=== PATIENT | female | born 1945 | race Caucasian/White ===

== ENCOUNTER 2017-01-09 20:58 | Emergency (ER) | payer MEDICARE, OTHER ==
--- NOTE | 2017-01-09 21:29 | ERNOTE ---
Medical Problem HPI - Narrative Date of Service: 01/09/17 - General Chief Complaint: Nausea/Vomiting Time Seen by Provider: 01/09/17 21:22 Source: patient, family - Immun/Allergies/Home Medications Immunizations: IMMUNIZATION HX Immunizations Up to Date Yes History of Influenza Vaccine Yes Hx Pneumococcal Vaccination Yes Allergies/Adverse Reactions: Allergies Neuromuscular Blockers, Steroidal [Steroidal Neuromuscular Blockers] Allergy ( Verified 01/09/17 21:08) Home Medications: HOME MEDICATIONS Amlodipine Besylate [Norvasc] 2.5 mg PO BID 07/06/15 [Last Taken Unknown] Aspirin [Aspirin EC] 81 mg PO DAILY 07/06/15 [Last Taken Unknown] Bimatoprost [Lumigan 0.01% Opth Solution] 1 drop OP DAILY 07/06/15 [Last Taken Unknown] Nexium 11/15/15 [Last Taken Unknown] Ondansetron [Zofran Odt] 4 mg PO Q6H PRN #7 tab 01/10/17 [Last Taken Unknown] Potassium Chloride [K-Dur] 20 meq PO DAILY #7 tab 01/10/17 [Last Taken Unknown] - History of Present History Narrative: PT REPORTEDLY CALLED [facility] EARLIER THIS MORNING WHEN SHE AWAKENED WITH UPPER BACK PAIN ACROSS HER SHOULDERS THINKING SHE HAD STROKE OR PA. WENT TO ER THERE AND CLEARED OF BOTH BUT GIVEN MORPHINE FOR BACK PAIN. SHE IS NOT SURE WHAT THE DIAGNOSIS WAS. SHE SAYS THE DID EKG , BLOOD WORK AND CT OF ABDOMEN. SHE TOOK MORPHINE ABOUT 1400 AND HAS NAUSEA AND VOMITING NOW. NO DIARRHEA. STILL C/O OF UPPER TO MID BACK PAIN THAT WORSENS WITH MOVEMENT. SHE DENIES ANY PHX OF BACK PAIN. NO RECENT TRAUMA OR UNUSUAL ACTIVITY OR EXERTION. NO FEVERS OR CHILLS. DENIES GI OR UTI SX'S. WE WILL CALL [facility] TO OBTAIN HER MED RECORDS. Review of Systems - Review of Systems Constitutional: Present: See HPI EYE: Present: no symptoms reported ENT: Present: no symptoms reported Respiratory: Present: no symptoms reported Cardiology: Present: no symptoms reported Gastrointestinal/Abdominal: Present: nausea, vomiting Genitourinary: Present: no symptoms reported Musculoskeletal: Present: See HPI, back pain Skin: Present: no symptoms reported Neurological: Present: no symptoms reported Endocrine: Present: no symptoms reported Hematologic/Lymphatic: Present: no symptoms reported Psych: Present: no symptoms reported All Other Systems: All systems neg except as marked - Patient's Past Medical History Patient History - Medical: GERD, Headache, Other - HEMACHROMATOSIS, GLAUCOMA, MACULAR DEG. , ADRENAL ADENOMA. Patient History - Cardiac/Respiratory: Hypertension Patient History - Cancer: No Hx of Cancer Patient History - Surgical Procedures: Cataracts, Hysterectomy, Other, Orthopedic Patient History - Other: None - Family History Mother Family History - Medical: Family History - Cardiac/Respiratory: CVA/Stroke Family History - Cancer: Breast, Lung, Other - ENT Father Family History - Medical: - Social History Living Situations: spouse Abuse History: No History of abuse Psych History: No pertinent hx Smoking Status: Never smoker Alcohol Use: none Drug Use: none - Immunizations Immunizations Up to Date: Yes Hx Pneumococcal Vaccination: Yes History of Influenza Vaccine: Yes Physical Exam - Physical Exam General Appearance: Present: wd/wn, alert, mild distress, anxious Eye Exam: Normal inspection: bilateral Ears, Nose, Throat: Present: normal ENT inspection Neck: Present: normal inspection Respiratory: Present: no respiratory distress, normal breath sounds, no accessory muscle use, chest nontender, lungs clear Cardiovascular/Chest: Present: regular rate, rhythm, no murmur, normal peripheral pulses Gastrointestinal/Abdominal: Present: normal bowel sounds, nontender, nondistended, soft, no organomegaly Back Exam: Present: normal inspection, no CVA tenderness ED Progress - Date and Time Seen: Date and Time: 01/09/17 22:02 RECORDS FROM [facility] SHOW SHE WAS SEEN FOR LOW BACK PAIN, DX'D LOW BACK PAIN AND DC'D WITH NORFLEX , NOT MORPHINE. EKG THERE WAS NSR WITH LVH. CBC, CMP AND UA = NORMAL. TROP = NEG . CT ANGIO W/WO CONTRAST FOR DISSECTION = NEGATIVE FOR DISSECTION AND PULMONARY NODULE, SMALL H.H., FATTY LIVER, STABLE RIGHT ADRENAL ADENOMA, SMALL R. RENAL CYST, DIVERTICULOSIS. DGN CHANGE OF OSSEOUS STRUCTURES WITHOUT ACUTE ABNORMALITY. - Results and Orders Patient's Lab Results:: I have reviewed the patient's lab results. Results and Orders: CBC ABD CMP DONE HERE = WBC =16.5 ( SHE WAS VOMITING BEFORE STUDY DONE AND K+ = 3.1 WHICH IS LESS THAN IN [facility] A FEW HOURS AGO. LIPASE= 88 AND TROP = < 0.017. HER URINE IS NEGATIVE AND UDS = NEG. - Vital Signs Patient's Vital Signs:: I have reviewed the patient's vital signs. Vital Signs: Vital Signs 01/09/17 21:00 Temperature 36.7 C Pulse Rate 99 Respiratory 18 Rate Blood Pressure 192/103 O2 Sat by Pulse 97 Oximetry MONITOR BP = 147/68 WITH HR 108, NO HTN MEDS HAVE BEEN GIVEN. - EKG EKG: NSR, nonspecific ST T wave changes, unchanged from - 07/06/2015 AND EARLIER TODAY AT [facility].- ER EKG read: Interp. by me - Progress/Reassessment Chief Complaint: Nausea/Vomiting Progress:: Improved - NO VOMITING HERE. Departure - Departure Clinical Impression: Hypokalemia Back pain Qualifiers: Back pain location: back pain in unspecified location Chronicity: acute Back pain laterality: unspecified Qualified Code(s): M54.9 - Dorsalgia, unspecified Nausea and vomiting Qualifiers: Vomiting type: unspecified Vomiting Intractability: unspecified Qualified Code( s): R11.2 - Nausea with vomiting, unspecified Medication side effects Qualifiers: Encounter type: initial encounter Qualified Code(s): T88.7XXA - Unspecified adverse effect of drug or medicament, initial encounter Condition: Fair Instructions: Hypokalemia, Potassium Content of Foods, Nausea, Adult, Back Pain , Adult, [id number] Additional Instructions: GENTLE ACTIVITY- INCREASE YOUR ACTIVITY YOU FEEL BETTER. USE YOUR MEDICATION DIRECTED. IT IS OKAY TO ALSO ADD TYLENOL 650 MG EVERY 4-6 HOURS AND / OR IBUPROFEN 400 MG EVERY 8 HOURS. USE THE ZOFRAN IF NEEDED FOR NAUSEA AND VOMITING AND CLEAR LIQUID AND LIGHT DIET . BECAUSE YOUR POTASSIUM WAS SLIGHTLY LOW HERE I ADDED A WEEKS WORTH OF POTASSIUM SUPPLEMENT AND YOU SHOULD FOLLOW UP WITH YOUR FAMILY DOCTOR TO SEE IF THAT HAS RESOLVED. Referrals: Perez Tierney MD [Primary Care Provider] - Prescriptions: Ondansetron [Zofran Odt] 4 mg PO Q6H PRN #7 tab PRN Reason: Vomiting Potassium Chloride [K-Dur] 20 meq PO DAILY #7 tab
[2017-01-09] MEDS ORDERED: ONDANSETRON HCL/PF 2 MG/ML VIAL IV ONE (21:30)
[2017-01-09] MEDS ORDERED: NORMAL SALINE 1,000 ML IV ONE (21:30)
--- OUTSIDE RECORDS SUMMARY | 2017-01-09 21:35 | XMS REPORT | Continuity of Care Document ---
:1945 Author Organization [facility] ([facility]) Address [address] [place] [address] Phone [phone] Care Team Providers Name Role Phone Perez Tierney Primary Care Provider [phone] Source Comments This disclosure is being made pursuant to the Care Everywhere program, applicable federal and state laws, and may not contain all informaitonavailable regarding this patient.[facility] ([facility]) Active Allergies and Adverse Reactions Allergen Noted Date Severity Reactions Comments Corticosteroids (Glucocorticoids) 10/13/2016 OTHER Elevated blood sugars Current Medications Prescription Sig. Disp. Refills Start Date End Date Status amLODIPine 10 mg Take 10 mg by Active tablet mouth daily. aspirin 81 mg EC Take 81 mg by Active tablet mouth daily. esomeprazole 40 mg EC Take 1 capsule 30 capsule 11 10/13/2016 Active capsule (40 mg total) by mouth daily. Active Problems Problem Noted Date Pain in joint, ankle and foot 04/27/2008 Tibialis tendinitis 04/27/2008 Most Recent Encounters Date Type Specialty Providers Description 12/05/2016 Office Visit Med GI/Hepatology Bubba Ortiz, Chief Comp: Patient MD Reported Reason For Mimi Manuel Visit JORGE 11/21/2016 Orders/Notes Med GI/Hepatology Mimi Manuel PA-C 11/20/2016 Telephone Med GI/Hepatology Mimi Manuel, Chief Comp: Discuss JORGE Test Results 11/11/2016 Nurse Triage Med GI/Hepatology Gabriel Naranjo, Chief Comp: Post -op RN Follow-up Call 11/07/2016 [facility] Med GI/Hepatology Cailin Duval, Dx: Gastroesophageal Encounter MD reflux disease without esophagitis 10/20/2016 [facility] Radiology Eusebio Tan Dx: Gastroesophageal Encounter MD [place] reflux disease without esophagitis 10/13/2016 Office Visit Med GI/Hepatology Default, Other Dx: Gastroesophageal Billg - Defo reflux disease without Bubba Ortiz, esophagitis (Primary MD Dx) Mimi Manuel PA-C Social History Tobacco Use Types Packs/Day Years Used Date Never Smoker Smokeless Tobacco: Never Used Last Filed Vital Signs Vital Sign Reading Time Taken Blood Pressure 152/67 11/07/2016 2:15 PM CDT Pulse 67 11/07/2016 12:13 PM CDT Temperature 36.1 C (97 F) 11/07/2016 2:02 PM CDT Respiratory Rate 18 11/07/2016 12:13 PM CDT Height 1.702 m (5' 7.01") 10/13/2016 11:54 AM CDT Weight 84.5 kg (186 lb 4.6 oz) 11/07/2016 12:14 PM CDT Body Mass Index 29.17 11/07/2016 12:14 PM CDT Oxygen Saturation 97% 11/07/2016 2:15 PM CDT Plan of Care Date Type Specialty Providers Description 01/14/2017 Appointment Med GI/Hepatology Bubba Ortiz MD [address] [place] [address] [phone] (Fax) Chief Comp: Patient Mimi Manuel PA-C [address] [place] [address] [phone] (Fax) Reported Reason For Visit 01/21/2017 Appointment Ophthalmology - Robert Rodriguez, Chief Comp: Patient Specialty MD Reported Reason For [address] [facility] [place] [address] [phone] (Fax) Health Maintenance Due Date Last Done Comments Hepatitis B Vaccine (1 of 3 - Primary Series) 1945 Tdap Vaccine 1954 Lipid Disorder Screening 1961 Td Vaccine 1961 Mammogram 1983 Colonoscopy 04/09/1993 Zoster Vaccine 2003 Osteoporosis Screening (DXA Bone Density) 2008 Pneumococcal Vaccine (1 of 2 - PCV13) 2008 Influenza Vaccine: Seasonal (Season Ended) 2017 Results from Last 3 Months ENDOSCOPY UPPER (11/11/2016 10:35 AM) Cailin Barrientos MD 11/11/2016 10:35 AM ENDOSCOPY UPPER Procedure Date: 11/07/2016 Indications: Long standing acid reflux. History of dysphagia. Attending Staff: Cailin Duval MD Fellow: DAPHNE Perez Referring Physician: Perez Tierney Consent: The risks, benefits, indications, potential complications, and alternatives were explained to the patient and informed consent obtained. Anesthesia: Proceduralist directed. deep sedation from 11/07/16 1:42 PM to :48 PM. Adverse Events: None Sedation Medications: 1. Propofol 170 mg IV Description of Procedure: Time out was performed. The patient was placed in the left lateral decubitus position.The patient was monitored continuously withpulse oximetry, blood pressure monitoring, and direct observations. The Olympus gastroscope [id number] inserted into the mouth and advanced under direct vision to third portion of duodenum.A careful inspection was made as the gastroscope was withdrawn, including an examination of gastric fundus and cardia under retroflexed view. Findings and interventions are described below. Photographs: Appropriate photodocumentation was obtained. Findings: Esophagus:Z-line was noted at36 cm and was regular. No esophageal varices, no endoscopic evidence of esophagitis. Stomach: The mucosa of the stomach was normal without signs of inflammation. There were no ulcers or erosions and no masses or polyps were present. Retroflexion of the scope in the fundus confirmed the absence of a hernia/gastric varices. Duodenum: the duodenum was explored to third portion of duodenum. The mucosa was endoscopically normal without ulcerations or erosions. Complications: The patient did tolerate the procedure well and no complications were noted. Biopsy/Specimens: None. Impression: No pathology identified to explain her symptoms. Plan: Consider PH testing off PPIs to check if her symptoms are acid reflux related. Signature DAPHNE Perez Fellow, Division of Gastroenterology/Hepatology, [facility]. Post Sedation Evaluation Blood pressure: 135/59 (:52 PM) Pulse: 64 (:52 PM) 65 (:52 PM) Temperature: 97 Temp. Source: Tympanic Respiratory rate: 18 (171:52 PM) SpO2: 99 (171:52 PM) Pain: None Nausea and Vomiting: No Level of Consciousness: Awake and alert Airway Patency: Patent I have personally evaluated the patient prior to discharge. Florentin Downing MD. Teaching statement: I, Dr. Cailin Duval, was present for the entire procedure. Cailin Duval MD Clinical Professor Department of Internal Medicine Division of Gastroenterology-Hepatology FL ESOPHAGRAM& COOKIE SWALLOW (OPMS) (10/20/2016 10:22 AM) Impressions Impression: 1. Moderate size hiatal hernia. 2. Moderate to significant gastroesophageal reflux reaching up to the upper esophagus. 3. Esophageal dysmotility with weak primary peristalsis and proximal escape. 4. Normal cookie swallow Please see the speech pathology note for further delineation of these findings and therapeutic recommendations. Narrative Procedure: FL ESOPHAGRAM & COOKIE SWALLOW (OPMS) Clinical indication: globus sensation, GERD Technique: Video cookie swallow and double contrast barium cine esophagram are performed in conjunction with speech pathology utilizing various consistencies of barium. Additional spot films of the esophagus were obtained. Fluoroscopy time: 5 minutes and 46 seconds Findings: Cookie Swallow: There is good oral bolus formation and delivery with all consistencies. There is no delay in initiation of the pharyngeal phase. Normal epiglottic inversion. No penetration or aspiration. Good clearance without significant residual. Esophogram: In the upright position there is normal transit of contrast through the esophagus without strictures or masses. There is a moderate size hiatal hernia. Moderate to significant gastroesophageal reflux is seen reaching up to the upper esophagus. Prone swallow demonstrates poor primary peristaltic wave with proximal escape. Procedure Note Donald, Incoming Imaging Results - ThuOct 20, 2016 3:54 PM CDT Procedure: FL ESOPHAGRAM & COOKIE SWALLOW (OPMS) Clinical indication: globus sensation, GERD Technique: Video cookie swallow and double contrast barium cine esophagram are performed in conjunction with speech pathology utilizing various consistencies of barium. Additional spot films of the esophagus were obtained. Fluoroscopy time: 5 minutes and 46 seconds Findings: Cookie Swallow: There is good oral bolus formation and delivery with all consistencies. There is no delay in initiation of the pharyngeal phase. Normal epiglottic inversion. No penetration or aspiration. Good clearance without significant residual. Esophogram: In the upright position there is normal transit of contrast through the esophagus without strictures or masses. There is a moderate size hiatal hernia. Moderate to significant gastroesophageal reflux is seen reaching up to the upper esophagus. Prone swallow demonstrates poor primary peristaltic wave with proximal escape. IMPRESSION Impression: 1. Moderate size hiatal hernia. 2. Moderate to significant gastroesophageal reflux reaching up to the upper esophagus. 3. Esophageal dysmotility with weak primary peristalsis and proximal escape. 4. Normal cookie swallow Please see the speech pathology note for further delineation of these findings and therapeutic recommendations.
[2017-01-09 21:52] LABS: Hematocrit 44.3 % (37.0-47.0); Hemoglobin 14.8 gm/dL (12.5-16.0); Mean Cell Volume 90.8 fl (78-100); Mean Corpuscular Hemoglobin 30.3 pg (27-31); Mean Corpuscular Hgb Conc 33.4 g/dl (32-36); Mean Platelet Volume 10.3 fl (6.0-9.5); Neutrophil # 14.7 K/mm3 (1.3-6.0); Platelet Count 328 K/mm3 (150-450); Red Blood Count 4.88 M/mm3 (4.2-5.4); Red Cell Distribution Width 13.8 % (11.5-14.0); White Blood Count 16.5 K/mm3 (4.0-10.5)
[2017-01-09] MEDS ORDERED: ONDANSETRON HCL/PF 2 MG/ML VIAL ONE ×2 (21:59→22:00)
[2017-01-09 22:10] LABS: ALT 34 U/L (19-67); AST 23 U/L (0-48); Albumin * 3.9 gm/dl (3.4-5.0); Alkaline Phosphatase * 96 U/L (50-170); Anion Gap 18.6 mmol/L (6.8-13.8); BUN/Creatinine Ratio 14.4 (9.0-21.6); Bilirubin, Total 0.6 mg/dL (0.0-1.1); Blood Urea Nitrogen 14 mg/dL (3-23); Ca. Corrected For Albumin 8.9 mg/dL (8.4-10.2); Calcium * 9.1 mg/dL (7.9-10.9); Carbon Dioxide 24.5 mmol/L (24-32.6); Chloride 101 mmol/L (97-106); Glucose * 179 mg/dL (70-110); Lipase 88 U/L (73-393); Potassium 3.1 mmol/L (3.4-4.6); Sodium 141 mmol/L (132-142); Total Protein 7.5 gm/dL (6.2-8.2); Troponin I Less than 0.017 ng/ml (0.00-0.10)
[2017-01-09 22:48] LABS: Urine Bilirubin Negative (NEGATIVE); Urine Blood 25 /ul (NEGATIVE); Urine Ketone Negative (NEGATIVE); Urine Nitrite Negative (NEGATIVE); Urine Protein Negative (NEGATIVE); Urine Specific Gravity >=1.030 SP.GR. (1.005-1.010); Urine Urobilinogen Normal (NORMAL); Urine pH 5.5 pH (5.0-7.0)
[2017-01-09 22:56] LABS: Urine Amorphous Sediment Few - 1+ (NONE-FEW); Urine Appearance Clear; Urine Bacteria None Seen; Urine Color Yellow; Urine RBC 0-5 /hpf (0-5); Urine WBC None Seen /hpf (0-5)
[2017-01-09 22:57] LABS: Cocaine Ur Negative (NEGATIVE); Urine Barbiturate Negative (NEGATIVE); Urine Benzodiazepines Negative (NEGATIVE); Urine Opiates Negative (NEGATIVE); Urine PCP Negative (NEGATIVE); Urine THC Negative (NEGATIVE)
[2017-01-10 01:38] VITALS: BP 153/59
== END 2017-01-10 01:48 | disposition home or self-care (01) ==
LOC: ER 20:58
DX: E87.6 Hypokalemia (principal); M54.9 Dorsalgia, unspecified; R11.2 Nausea with vomiting, unspecified; T88.7XXA Unspecified adverse effect of drug or medicament, initial encounter; I10 Essential (primary) hypertension
CPT/HCPCS: 36415; 80053; 80307; 81001; 83690; 84484; 85025; 93005; 96374; 99285; J2405